=== PATIENT | female | born 2000 | race Native Hawaiian/Other Pacific Islander ===

== ENCOUNTER 2021-03-10 18:38 | Emergency (ER) | payer OTHER, BC ==
[~2021-03-10] VITALS: Ht 157.5 cm; Wt 59.0 kg
[2021-03-10 21:15] VITALS: BP 125/72; TEMP 98.6
== END 2021-03-10 21:15 | disposition home or self-care (01) ==
LOC: ED 18:38
PROC: 0HQ2XZZ Repair Right Ear Skin, External Approach (ICD-10-PCS; principal; 2021-03-10)
PROC: 0HQ6XZZ Repair Back Skin, External Approach (ICD-10-PCS; 2021-03-10)
DX: S22.31XA Fracture of one rib, right side, initial encounter for closed fracture (principal); S13.4XXA Sprain of ligaments of cervical spine, initial encounter; S70.02XA Contusion of left hip, initial encounter; S70.312A Abrasion, left thigh, initial encounter; S70.12XA Contusion of left thigh, initial encounter; S01.311A Laceration without foreign body of right ear, initial encounter; S41.011A Laceration without foreign body of right shoulder, initial encounter; S40.211A Abrasion of right shoulder, initial encounter; R51.9 Headache, unspecified; V43.53XA Car driver injured in collision with pick-up truck in traffic accident, initial encounter; Y92.89 Other specified places as the place of occurrence of the external cause
CPT/HCPCS: 90471; 90715; 93005; 96374; 96375; 99284; J2270; J2405